=== PATIENT | female | born 1995 | race Caucasian/White ===

== ENCOUNTER 2018-07-13 00:50 | Emergency (ER) | payer MEDICAID, OTHER ==
[2018-07-13] MEDS ORDERED: oxyCODONE ORAL.SOLN* 5 MG/5 ML UDC PO ONE (01:53)
[2018-07-13] MEDS ORDERED: Ibuprofen ADULT LIQ* 600 MG/30 ML UDC PO ONE (01:53)
--- NOTE | 2018-07-13 02:06 | ED ---
Upper Extremity Pain - HPI Summary HPI Summary: 22-year-old female presents with right hand injury. She states that she ended up punching a wall. She has edema noted to right hand. She is right-handed. 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 She denies any numbness or tingling. No previous fracture to the area. No other injury. - History of Current Complaint Chief Complaint: EDExtremityUpper Stated Complaint: MESSED UP MY HAND PER PT Time Seen by Provider: 07/13/18 01:23 - Allergies/Home Medications Allergies/Adverse Reactions: Allergies Allergy/AdvReac Type Severity Reaction Status Date / Time Penicillins Allergy Rash Verified 07/13/18 00:53 Home Medications: Home Medications Testosterone Propionate 200 mg PO DAILY 07/13/18 [History Confirmed 07/13/18] PMH/Surg Hx/FS Hx/Imm Hx Endocrine/Hematology History: Denies: Hx Anticoagulant Therapy Respiratory History: Denies: Hx Asthma Infectious Disease History: No Infectious Disease History: Denies: Traveled Outside the [place] in Last 30 Days - Family History Known Family History: Positive: Non-Contributory - Social History Alcohol Use: Occasionally Substance Use Type: Reports: None Smoking Status (MU): Light Every Day Tobacco Smoker Review of Systems Negative: Fever Negative: Chest Pain Negative: Shortness Of Breath Positive: Myalgia - right hand pain All Other Systems Reviewed And Are Negative: Yes Physical Exam Triage Information Reviewed: Yes Vital Signs On Initial Exam: Initial Vitals Temp Pulse Resp BP Pulse Ox 97.5 F 118 16 144/83 100 07/13/18 00:51 07/13/18 00:51 07/13/18 00:51 07/13/18 00:51 07/13/18 00:51 Vital Signs Reviewed: Yes Appearance: Positive: Well-Appearing Skin: Positive: Warm, Dry Head/Face: Positive: Normal Head/Face Inspection Eyes: Positive: Normal, Conjunctiva Clear ENT: Positive: Pharynx normal Respiratory/Lung Sounds: Positive: Clear to Auscultation, Breath Sounds Present Cardiovascular: Positive: Normal, RRR Musculoskeletal: Positive: Limited @ - 5th metacarpel, Other - Edema over right fifth metacarpal. Tenderness over this area. Cap refill less than 2 seconds. Good pulses. Neurological: Positive: Normal Psychiatric: Positive: Normal Procedures - Splinting hand Location: right hand Hand-Made Type: orthoglass Splint: ulnar Pre-Proc Neuro Vasc Exam: normal Post-Proc Neuro Vasc Exam: normal Diagnostics - Vital Signs Vital Signs Temp Pulse Resp BP Pulse Ox 07/13/18 00:51 97.5 F 118 16 144/83 100 - Laboratory Lab Statement: Any lab studies that have been ordered have been reviewed, and results considered in the medical decision making process. - Radiology hand Radiology Interpretation Completed By: Radiologist Summary of Radiographic Findings: 5th metacarpel fracture Course/Dx - Course Course Of Treatment: 22-year-old female presents with right hand injury. She states that she ended up punching a wall. She has edema noted to right hand. She is right-handed. 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 She denies any numbness or tingling. No previous fracture to the area. No other injury. On exam has edema to the fifth metacarpal. Neurovascular intact. X-ray shows fracture of fifth metacarpal. Place patient in ulnar gutter splint. as cannot swallow pills gave Liquid pain medication. Gave referral to orthopedic. Told to ice elevate. Patient understands agrees with plan. - Diagnoses Differential Diagnosis/HQI/PQRI: Positive: Fracture (Closed), Strain, Sprain Provider Diagnoses: Closed fracture of 5th metacarpal Discharge - Sign-Out/Discharge Documenting (check all that apply): Patient Departure Patient Received Moderate/Deep Sedation with Procedure: No - Discharge Plan Condition: Good Disposition: HOME Prescriptions: oxyCODONE ORAL.SOLN* [Oxycodone ORAL.SOLN 5 mg/5 ml *] 5 mg PO Q8HR #75 ml MDD 15ml Patient Education Materials: Hand Fracture (ED) Forms: *Work Release Referrals: Gian Rubio MD [Primary Care Provider] - Rivka Caldwell MD [Medical Doctor] - Additional Instructions: Keep splint on area and keep dry Call ortho office tomorrow to set up appointment for follow up Use ibuprofen for pain every 6 hours and use 5ml oxycodone for breakthrough pain every 8 hours Ice, elevate Return to ED if develop any new or worsening symptoms - Billing Disposition and Condition Condition: GOOD Disposition: Home
[2018-07-13 02:30] VITALS: BP 121/85
== END 2018-07-13 02:29 | disposition home or self-care (01) ==
LOC: ED 00:50
DX: S62.306A Unspecified fracture of fifth metacarpal bone, right hand, initial encounter for closed fracture (principal); W22.09XA Striking against other stationary object, initial encounter; Y92.9 Unspecified place or not applicable; Z88.0 Allergy status to penicillin; F17.200 Nicotine dependence, unspecified, uncomplicated
CPT/HCPCS: 99282; A9270-GY